=== PATIENT | female | born 1995 | race Caucasian/White ===

== ENCOUNTER 2018-02-08 13:34 | Outpatient (CLI) | payer BC ==
[2013-01-14 21:24] VITALS: BP 115/52
--- NOTE | 2018-02-08 19:54 | Diagnostic Imaging Report ---
SIN WALTERS [facility] [id number] [facility].[address] [id number] Report Submission Date: Feb 08, 2018 2:07:55 PM CDT Patient Study Name: SHAILA SOLANO Date: Feb 08, 2018 1:36:56 PM CDT Modality Type: DX Gender: F Description: SPINE : 89 Institution: [facility] Physician: SIN WALTERS Lumbar spine History: Back pain AP, lateral and bilateral oblique projections of the lumbar spine demonstrate a small Schmorl's node along the anterosuperior endplate of L4. Vertebral body height and intervertebral disc space height is maintained. There is no spondylolisthesis or spondylolysis. There is mild leftward curvature. Impression: Mild leftward curvature. Small Schmorl's node along the anterosuperior endplate of L4. Electronically signed on Feb 08, 2018 2:07:55 PM CDT by: Deandra PITTS
== END 2018-02-08 13:35 ==
LOC: RAD 13:34
PROVIDERS: ATTEND Physician Assistant
DX: M54.42 Lumbago with sciatica, left side (principal)
CPT/HCPCS: 72110